=== PATIENT | female | born 1980 | race Caucasian/White ===

== ENCOUNTER → 2016-11-23 | Outpatient (CLI) | payer OTHER ==
[~2016-11-23] MED LIST: ASPI81TA11 PO; FOLI1 PO; PRENTAB62 PO
== END ==
LOC: HPND 07:34
PROVIDERS: ATTEND Obstetrics & Gynecology
DX: O09.811 Supervision of pregnancy resulting from assisted reproductive technology, first trimester (principal); O34.41 Maternal care for other abnormalities of cervix, first trimester
CPT/HCPCS: 36416; 76813

== ENCOUNTER → 2016-12-21 | Outpatient (CLI) | payer OTHER | LOC: HPND 08:05 | PROVIDERS: ATTEND Obstetrics & Gynecology | DX: O09.811 Supervision of pregnancy resulting from assisted reproductive technology, first trimester (principal); O34.41 Maternal care for other abnormalities of cervix, first trimester; Z87.898 Personal history of other specified conditions; Z3A.00 Weeks of gestation of pregnancy not specified | CPT/HCPCS: 76811; 76817 ==

== ENCOUNTER → 2016-12-29 | Outpatient (CLI) | payer OTHER | LOC: HPND 08:06 | PROVIDERS: ATTEND Obstetrics & Gynecology | DX: O35.1XX0 Maternal care for (suspected) chromosomal abnormality in fetus, not applicable or unspecified (principal); O34.32 Maternal care for cervical incompetence, second trimester; O34.42 Maternal care for other abnormalities of cervix, second trimester; O44.02 Complete placenta previa NOS or without hemorrhage, second trimester | CPT/HCPCS: 76815; 76817 ==

== ENCOUNTER → 2017-01-12 | Outpatient (CLI) | payer OTHER | LOC: HPND 08:06 | PROVIDERS: ATTEND Obstetrics & Gynecology | DX: O26.872 Cervical shortening, second trimester (principal); O34.32 Maternal care for cervical incompetence, second trimester; O09.812 Supervision of pregnancy resulting from assisted reproductive technology, second trimester; Z3A.20 20 weeks gestation of pregnancy | CPT/HCPCS: 76816; 76817; 76825; 76827; 93325 ==

== ENCOUNTER → 2017-01-26 | Outpatient (CLI) | payer OTHER | LOC: HPND 14:24 | PROVIDERS: ATTEND Obstetrics & Gynecology | DX: O09.812 Supervision of pregnancy resulting from assisted reproductive technology, second trimester (principal) | CPT/HCPCS: 76815; 76817 ==

== ENCOUNTER → 2017-02-14 | Outpatient (CLI) | payer OTHER | LOC: HPND 07:55 | PROVIDERS: ATTEND Obstetrics & Gynecology | DX: O09.812 Supervision of pregnancy resulting from assisted reproductive technology, second trimester (principal) | CPT/HCPCS: 76816; 76817 ==

== ENCOUNTER 2017-05-07 10:14 | Inpatient (IN) | payer OTHER ==
[2017-05-07] VITALS (74 sets, daily range): BP systolic 102–156; BP diastolic 57–95; PULSE 70–292; RESP 16–18; TEMP 97.8–97.9
[~2017-05-07] VITALS: Ht 180.3 cm; Wt 83.9 kg
[2017-05-07] MEDS ORDERED: LACTATED RINGER'S 1000 ML INJ 1,000 ML IV PRN (11:10)
--- NOTE | 2017-05-07 11:10 | PD ---
HPI Chief Complaint Leaking fluid since 09:00 Date Seen: May 07, 2017 Time Seen: 11:00 Travel History International Travel<30 Days: No Contact w/Intl Traveler<30Days: No Known Affected Area: No History of Present Illness HPI Pt is a 36 yo who presents with c/o leaking fluid vaginally since 09: 00. Fluid is clear. She does not feel any contractions, and there is no bleeding. Pt reports active movements. Pt has had previously uncomplicated care with Dr Reveles. EDC 05-27-2017 was conceived through IVF. Pt has been on Acyclovir for HSV prophylaxis. Weeks Gestation: 37 Para: 0 : 4 History Past Medical History Narrative Medical h/o HSV Medical History: Denies Significant Hx Obstetric History Obstetric History Prior 1st trimester losses x 3, including ectopic Past Surgical History Narrative Surgical IVF egg retrieval LSC salpingectomy for ectopic. Family History Family History: Negative Social History Alcohol Use: No Tobacco Use: No Substance Abuse: No Allergies-Medications (Allergen,Severity, Reaction): Coded Allergies: No Known Allergies (Verified , 12/06/14) Home Meds Reported Medications Folic Acid (Folate 1 Mg Tab) 1 Mg Tab, 2 MG PO DAILY, TAB 12/06/14 Aspirin (Aspirin EC 81 mg) 81 Mg Tab, 81 MG PO DAILY, TAB 12/06/14 Vit W/ Ferrous Fumara ( Vitamins Plus) Plus Tab, 1 PO DAILY 05/11/12 Review of Systems Except as stated in HPI: all other systems reviewed are Neg Physical Exam Narrative GENERAL: Well-nourished, well-developed patient. SKIN: Warm and dry. HEAD: Normocephalic and atraumatic. EYES: No scleral icterus. No injection or drainage. ENT: No nasal drainage noted. Mucous membranes pink. Airway patent. NECK: Supple, trachea midline. No JVD. CARDIOVASCULAR: Regular rate and rhythm without murmurs, gallops, or rubs. RESPIRATORY: Breath sounds equal bilaterally. No accessory muscle use. BREASTS: Bilateral exam showed no masses , no retractions, no nipple discharge. ABDOMEN/GI: Abdomen soft, non-tender, bowel sounds present, no rebound, no guarding Gravid to [37] weeks size Fundal Height: [-] GENITOURINARY: External Genitalia: intact and normal in appearance Cervix: [soft] Dilatation: [FT] Effacement: [70%] Station: [-3] Presentation: [vertex, confirmed by ultrasound] Membranes: [Grossly ruptured] Uterine Contractions: [1-3 minutes] FHT's: Category: [1] Baseline: [120s] Reactive: [-] Variability: [-] Decels: [none] EXTREMITIES: No cyanosis or edema. BACK: Nontender without obvious deformity. No CVA tenderness. NEUROLOGICAL: Awake and alert. Motor and sensory grossly within normal limits. Five out of 5 muscle strength in all muscle groups. Normal speech. Data Data Vital Signs Reviewed: Yes Group B Strep: Negative MDM Medical Record Reviewed: Yes Plan SROM at term. Will admit to labor after discussing with Dr Reveles. D/w Dr Reveles , will admit and start Pitocin per protocol. Diagnosis Diagnosis: Primary Impression: with 37 weeks completed gestation Additional Impression: Ruptured, membranes, premature Reginaldo Villaseñor MD May 07, 2017 11:10
[2017-05-07] MEDS ORDERED: ONDANSETRON HCL 4 MG/2 ML VIAL IV PUSH PRN (11:15)
[2017-05-07] MEDS ORDERED: LIDOCAINE HCL 1% 50 ML VIAL I-DERMAL PRN (11:15)
[2017-05-07] MEDS ORDERED: MINERAL OIL 10 ML VIAL TOPICAL PRN (11:15)
[2017-05-07] MEDS ORDERED: SODIUM CHLORID 0.9% 500 ML INJ 500 ML IV PRN (11:15)
[2017-05-07] MEDS ORDERED: LIDOCAINE HCL 1% 50 ML VIAL INFIL PRN (11:15)
[2017-05-07] MEDS ORDERED: CITRIC ACID-SODIUM CITRATE LIQ 30 ML UDC PO SCH (11:15)
[2017-05-07] MEDS ORDERED: OXYTOCIN 30 UNITS-500ML PREMIX 500 ML IV ONE (11:15)
--- NOTE | 2017-05-07 11:23 | HHI.HP ---
HPI Chief Complaint 37 weeks and 1 day Leaking fluid vaginally since 09:00 Travel History International Travel<30 Days: No Contact w/Intl Traveler<30Days: No Known Affected Area: No History of Present Illness HPI Pt is a 36 yo who presents with c/o leaking fluid vaginally since 09: 00. EDC 05-27-2017 Fluid is clear. She does not feel any contractions, and there is no bleeding. Pt reports active movements. Pt has had previously uncomplicated care with Dr Reveles. was conceived through IVF. Pt has been on Acyclovir for HSV prophylaxis. Weeks Gestation: 37 Para: 0 : 4 History Past Medical History Narrative Medical h/o HVV, on Acyclovir prophylaxis Obstetric History Obstetric History previous ectopic, IVF Past Surgical History Narrative Surgical previous ectopic Family History Family History: Negative Social History Alcohol Use: No Tobacco Use: No Substance Abuse: No Allergies-Medications (Allergen,Severity, Reaction): Coded Allergies: No Known Allergies (Verified , 12/06/14) Home Meds Reported Medications Folic Acid (Folate 1 Mg Tab) 1 Mg Tab, 2 MG PO DAILY, TAB 12/06/14 Aspirin (Aspirin EC 81 mg) 81 Mg Tab, 81 MG PO DAILY, TAB 12/06/14 Vit W/ Ferrous Fumara ( Vitamins Plus) Plus Tab, 1 PO DAILY 05/11/12 Review of Systems Except as stated in HPI: all other systems reviewed are Neg Physical Exam Narrative GENERAL: Well-nourished, well-developed patient. SKIN: Warm and dry. HEAD: Normocephalic and atraumatic. EYES: No scleral icterus. No injection or drainage. ENT: No nasal drainage noted. Mucous membranes pink. Airway patent. NECK: Supple, trachea midline. No JVD. CARDIOVASCULAR: Regular rate and rhythm without murmurs, gallops, or rubs. RESPIRATORY: Breath sounds equal bilaterally. No accessory muscle use. BREASTS: Bilateral exam showed no masses , no retractions, no nipple discharge. ABDOMEN/GI: Abdomen soft, non-tender, bowel sounds present, no rebound, no guarding Gravid to [37] weeks size Fundal Height: GENITOURINARY: External Genitalia: intact and normal in appearance Cervix: [soft Dilatation: [FT] Effacement: [70%] Station: [-3] Presentation: [-] Membranes: [ruptured] Uterine Contractions: [1-3 minutes] FHT's: Category: [1] Baseline: [120s] Reactive: [-] Variability: [-] Decels: [none] EXTREMITIES: No cyanosis or edema. BACK: Nontender without obvious deformity. No CVA tenderness. NEUROLOGICAL: Awake and alert. Motor and sensory grossly within normal limits. Five out of 5 muscle strength in all muscle groups. Normal speech. Caprini VTE Risk Assessment Caprini VTE Risk Assessment: No/Low Risk (score <= 1) Caprini Risk Assessment Model Point Value = 1 Point Value = 2 Point Value = 3 Point Value = 5 Age 41-60 Minor surgery BMI > 25 kg/m2 Swollen legs Varicose veins or History of unexplained or recurrent spontaneous Oral contraceptives or hormone replacement Sepsis (< 1 month) Serious lung disease, including pneumonia (< 1 month) Abnormal pulmonary function Acute myocardial infarction Congestive heart failure (< 1 month) History of inflammatory bowel disease Medical patient at bed rest Age 61-74 Arthroscopic surgery Major open surgery (> 45 min) Laparoscopic surgery (> 45 min) Malignancy Confined to bed (> 72 hours) Immobilizing plaster cast Central venous access Age >= 75 History of VTE Family history of VTE Factor V Leiden Prothrombin [id number] Lupus anticoagulant Anticardiolipin antibodies Elevated serum homocysteine Heparin-induced thrombocytopenia Other congenital or acquired thrombophilia Stroke (< 1 month) Elective arthroplasty Hip, pelvis, or leg fracture Acute spinal cord injury (< 1 month) Prophylaxis Regimen Total Risk Factor Score Risk Level Prophylaxis Regimen 0-1 Low Early ambulation 2 Moderate Order ONE of the following: *Sequential Compression Device (SCD) *Heparin 5000 units SQ BID 3-4 Higher Order ONE of the following medications: *Heparin 5000 units SQ TID *Enoxaparin/Lovenox 40 mg SQ daily (WT < 150 kg, CrCl > 30 mL/min) *Enoxaparin/Lovenox 30 mg SQ daily (WT < 150 kg, CrCl > 10-29 mL/min) *Enoxaparin/Lovenox 30 mg SQ BID (WT < 150 kg, CrCl > 30 mL/min) AND/OR *Sequential Compression Device (SCD) 5 or more Highest Order ONE of the following medications: *Heparin 5000 units SQ TID (Preferred with Epidurals) *Enoxaparin/Lovenox 40 mg SQ daily (WT < 150 kg, CrCl > 30 mL/min) *Enoxaparin/Lovenox 30 mg SQ daily (WT < 150 kg, CrCl > 10-29 mL/min) *Enoxaparin/Lovenox 30 mg SQ BID (WT < 150 kg, CrCl > 30 mL/min) AND *Sequential Compression Device (SCD) Data Data Vital Signs Reviewed: Yes Orders Orders Ob (2e) Additional Admit Info (05/07/17 11:07) Admit To Inpatient (05/07/17 ) Code Status (05/07/17 11:10) Vital Signs (Adult) .Per protocol (05/07/17 11:10) Activity Oob Ad Kaylee (05/07/17 11:10) Heart (05/07/17 11:10) Amnioinfusion (05/07/17 11:10) Urinary Catheter Management .ONCE (05/07/17 11:10) Diet Liquid (05/07/17 Lunch) Lactated Ringer's 1000 Ml Inj (Lr 1000 M (05/07/17 12:00) Lactated Ringer's 1000 Ml Inj (Lr 1000 M (05/07/17 11:10) Sodium Chlorid 0.9% 500 Ml Inj (Ns 500 M (05/07/17 11:15) Sodium Chlor 0.9% 1000 Ml Inj (Ns 1000 M (05/07/17 11:30) Lidocaine 1% Inj (50 Ml) (Xylocaine 1% I (05/07/17 11:15) Citric Acid-Sodium Citrate Liq (Bicitra (05/07/17 11:15) Ondansetron Inj (Zofran Inj) (05/07/17 11:15) Fentanyl Inj (Fentanyl Inj) (05/07/17 11:15) Fentanyl Inj (Fentanyl Inj) (05/07/17 11:15) Complete Blood Count With Diff (05/07/17 11:10) Hold Clot (05/07/17 11:10) Abo/Rh Blood Type (05/07/17 11:10) Urinalysis - C+S If Indicated (05/07/17 11:10) Resp Oxygen Non Rebreathe Mask (05/07/17 ) ^ Epidural / Intrathecal Infus (05/07/17 11:10) Oxytocin 30 Units-500ml Premix (Pitocin (05/07/17 11:15) Lidocaine 1% Inj (50 Ml) (Xylocaine 1% I (05/07/17 11:15) Light Mineral Oil (Muri-Lube Oil) (05/07/17 11:15) Inpatient Certification (05/07/17 ) Group B Strep: Negative Assessment/Plan Assessment and Plan Admitted after term SROM. Will start pitocin augmentation per Dr Reveles. Reginaldo Villaseñor MD May 07, 2017 11:23
[2017-05-07] MEDS ORDERED: OXYTOCIN 30 UNITS-500ML PREMIX 500 ML IV SCH ×2 (11:30→21:45)
[2017-05-07] MEDS ORDERED: SODIUM CHLOR 0.9% 1000 ML INJ 1,000 ML IV PRN (11:30)
[2017-05-07] MEDS: LACTATED RINGER'S 1000 ML INJ 1,000 ML IV SCH ×2 (12:10→18:50)
[2017-05-07 12:32] LABS: AUTOMATED NEUTROPHIL # 6.6 TH/MM3 (1.8-7.7); BASOPHIL % 0.3 % (0.0-2.0); EOSINOPHIL # 0.1 TH/MM3 (0-0.4); HEMATOCRIT 42.4 % (35.0-46.0); HEMO FLAGS DIFF FINAL; LYMPH % 18.2 % (9.0-44.0); LYMPHOCYTE # 1.7 TH/MM3 (1.0-4.8); MEAN CELL VOLUME 94.8 FL (80.0-100.0); MEAN CORPUSCULAR HEMOGLOBIN 32.9 PG (27.0-34.0); MEAN CORPUSCULAR HGB CONC 34.7 % (32.0-36.0); MONO % 7.6 % (0.0-8.0); NEUT % 72.9 % (16.0-70.0); PLATELET COUNT 164 TH/MM3 (150-450); RED BLOOD COUNT 4.47 MIL/MM3 (4.00-5.30); RED CELL DISTRIBUTION WIDTH 12.8 % (11.6-17.2); WHITE BLOOD COUNT 9.1 TH/MM3 (4.0-11.0)
[2017-05-07 12:43] LABS: BACTERIA, URINE RARE /hpf; BLOOD, URINE NEG (NEG); COMMENT (UR) CULT NOT INDICATED; CULTURE IF INDICATED CULT NOT INDICATED; GLUCOSE,URINE NEG (NEG); KETONE, URINE NEG (NEG); MUCUS URINE FEW /lpf (OCC); NITRITE,URINE NEG (NEG); SQUAMOUS EPITHELIAL CELL URINE 5 /hpf (0-5); URINE COLOR YELLOW (YELLW/STRAW)
--- NOTE | 2017-05-07 13:14 | MH ---
cc: NATHALIA NAIR DATE OF ADMISSION: 05/07/2017 ADMITTING DIAGNOSIS at 37 weeks with PROM. HISTORY OF PRESENT ILLNESS The patient is a 36-year-old white female, para 0-0-4-0, with an in vitro with EDC of 05/27/17. Her course has been benign. Her first trimester screen and followup scans have been normal. PAST MEDICAL HISTORY Her past medical history is notable for - 1. A left salpingostomy for ectopic in 2011. 2. She has had laparoscopy and D&C in November of 2014 for endometriosis. 3. Breast augmentation 2002. 4. LEEP procedure age 22 for MARYLOU III and cryo 2006 for MARYLOU I. 5. She had another spontaneous in 2011 and 2015 and an ectopic in 2013 treated with methotrexate. SOCIAL HISTORY , schoolteacher. Alcohol, tobacco and drugs are none. PHYSICAL EXAMINATION GENERAL: A well-nourished well-developed, white female. VITAL SIGNS: Stable. HEENT: Exam is normal. CHEST: Chest is clear. HEART: Regular rate. BREASTS: Breasts are symmetrical. ABDOMEN: Abdomen is gravid. EFW 3000 grams. PELVIC: Cervix is with fingertip, thick, vertex -3, ruptured. time is 09:00 a.m. today by history. GBS is negative. PLAN She is now admitted for Pitocin induction. If she fails to progress or has distress, we will proceed with to Same Day Delivery. MD LYNN Ross/BJF /11:20 AM /12:26 PM DYAN
[2017-05-07] MEDS ORDERED: DIPHTH/TETANUS/ACEL PERTUSSIS (BOOSTER) 0.5 ML VIAL/PFS IM ONE (16:00)
[2017-05-07] MEDS ORDERED: MEASLES, MUMPS, RUBELLA VACCINE 0.5 ML VIAL SQ ONE (16:00)
[2017-05-07] MEDS ORDERED: fentaNYL 2MCG-BUPIV 0.125% INJ 100 ML ONE (17:29)
[2017-05-07] MEDS ORDERED: NO SYSTEM NARCOTICS PRN (20:45)
[2017-05-07] MEDS ORDERED: ePHEDrine/NS 25 MG/5 ML SYR IV PUSH PRN (20:45)
[2017-05-07] MEDS ORDERED: DO NOT ADMINISTER ANTICOAGULANTS PRN (20:45)
[2017-05-07] MEDS ORDERED: fentaNYL 2MCG-BUPIV 0.125% 100 ML EPIDURAL SCH (20:45)
[2017-05-07] MEDS ORDERED: ALUMINUM/MAGNESIUM/SIMETH 30 ML CUP PO PRN (21:45)
[2017-05-07] MEDS ORDERED: ACETAMINOPHEN 325 MG TAB PO PRN (21:45)
[2017-05-07] MEDS ORDERED: ONDANSETRON ODT 4 MG TAB PO PRN (21:45)
[2017-05-07] MEDS ORDERED: SODIUM CHLORIDE 0.9% FLUSH 10 ML FLUSH IV FLUSH PRN (21:45)
[2017-05-07] MEDS ORDERED: BENZOCAINE 20% TOPICAL SPRAY 60 ML CAN TOPICAL PRN (21:45)
[2017-05-07] MEDS ORDERED: WITCH HAZEL 50%/GLYCERIN 12.5% 40 PAD JAR TOPICAL PRN (21:45)
[2017-05-07] MEDS ORDERED: DOCUSATE SODIUM 50 MG/SENNA 8.6 MG TAB PO PRN (21:45)
[2017-05-07] MEDS ORDERED: ZOLPIDEM TARTRATE 5 MG TAB PO PRN (21:45)
[2017-05-07] MEDS ORDERED: oxyCODONE/ACETAMINOPHEN 5 MG/325 MG TAB PO PRN (21:45)
[2017-05-07] MEDS: KETOROLAC TROMETHAMINE 30 MG/ML (IVP) VIAL IV PUSH PRN (22:14)
[2017-05-07] MEDS ORDERED: METHYLERGONOVINE MALEATE 0.2 MG/ML VIAL IM SCH (23:45)
[2017-05-08] VITALS (9 sets, daily range): BP systolic 107–140; BP diastolic 69–90; PULSE 74–89; RESP 16–18; TEMP 97.8
[2017-05-08] MEDS: KETOROLAC TROMETHAMINE 30 MG/ML (IVP) VIAL IV PUSH PRN (02:46)
[2017-05-08] MEDS: IBUPROFEN 600 MG TAB PO PRN ×2 (05:45→11:53)
[2017-05-08 08:50] LABS: AUTOMATED NEUTROPHIL # 9.4 TH/MM3 (1.8-7.7); BASOPHIL % 0.4 % (0.0-2.0); EOSINOPHIL % 0.2 % (0.0-4.0); HEMATOCRIT 34.6 % (35.0-46.0); HEMO FLAGS DIFF FINAL; LYMPH % 11.7 % (9.0-44.0); LYMPHOCYTE # 1.4 TH/MM3 (1.0-4.8); MEAN CELL VOLUME 94.8 FL (80.0-100.0); MEAN CORPUSCULAR HEMOGLOBIN 33.1 PG (27.0-34.0); MEAN CORPUSCULAR HGB CONC 34.9 % (32.0-36.0); MONO % 6.5 % (0.0-8.0); NEUT % 81.2 % (16.0-70.0); PLATELET COUNT 141 TH/MM3 (150-450); RED BLOOD COUNT 3.65 MIL/MM3 (4.00-5.30); RED CELL DISTRIBUTION WIDTH 12.8 % (11.6-17.2); WHITE BLOOD COUNT 11.6 TH/MM3 (4.0-11.0)
[2017-05-08] MEDS ORDERED: SODIUM CHLORIDE 0.9% FLUSH 10 ML FLUSH IV FLUSH SCH (09:00)
[2017-05-08] MEDS ORDERED: INFLUENZA VIRUS VACCINE (QUADRIVALENT) 0.5 ML SYR IM ONE (10:00)
[2017-05-08] MEDS: oxyCODONE/ACETAMINOPHEN 5 MG/325 MG TAB PO PRN ×2 (17:01→22:50)
[2017-05-09] MEDS: IBUPROFEN 600 MG TAB PO PRN (06:03)
[2017-05-09 08:20] VITALS: BP 121/78; PULSE 73; RESP 16; TEMP 98.3
[2017-05-09] MEDS ORDERED: OXYC1TAB63 PO (08:24)
--- NOTE | 2017-05-09 08:24 | HHI.DCPOC ---
Discharge Care Plan Report Symptoms to Your Doctor -Temperature above 100.5 degrees -Redness, of incision or excessive or foul smelling drainage -Unusual pain or calf pain -Increased vaginal bleeding -Painful or difficulty urinating -Feelings of extreme sadness or anxiety after 2 weeks Goals to Promote Your Health * To prevent worsening of your condition and complications * To maintain your health at the optimal level Directions to Meet Your Goals Take your medications as prescribed Follow your dietary instruction Follow activity as directed Ensure plenty of rest for recovery Drink fluids for hydration Keep your appointments as scheduled Take your immunizations and boosters as scheduled If your symptoms worsen call your PCP, if no PCP go to Urgent Care Center or Emergency Room Smoking is Dangerous to Your Health. Avoid second hand smoke Call the 24-hour crisis hotline for domestic abuse at Paolo Reveles MD May 09, 2017 08:24
[2017-05-09] MEDS: oxyCODONE/ACETAMINOPHEN 5 MG/325 MG TAB PO PRN (08:41)
--- NOTE | 2017-05-09 08:44 | MD ---
cc: NATHALIA NAIR ADMISSION DATE: 05/07/2017 05/07/2017 DISCHARGE DATE: 05/09/2017 [place] Visit Search.Discharge Date ADMITTING DIAGNOSIS at 37 weeks with premature rupture of membranes. DISCHARGE DIAGNOSIS at 37 weeks with premature rupture of membranes, delivered. HISTORY OF PRESENT ILLNESS This is a 36-year-old white female, para 0-0-4-0, with an EDC of 05/27/2017 by known in vitro fertilization dates. Her course was benign. 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 She had a salpingoscopy on the right side for an ectopic in 2011, laparoscopy and D&C in 2014 for stable endometriosis, breast augmentation in 2002 and additional ectopic treated with methotrexate and two spontaneous abortions that did not require D&C at 5 weeks. HOSPITAL COURSE She had spontaneous rupture of membranes at about 9:00 a.m. on the morning of admission, was admitted and given Pitocin induction of labor and epidural anesthesia, and progressed to a spontaneous vaginal delivery on the evening of 05/07/2017, a viable vigorous male, Apgars 8 and 9, weight 6 pounds 14 ounces. She had a second-degree tear repaired with chromic suture. she did well and was discharged home in excellent condition on 05/09/2017. DISCHARGE INSTRUCTIONS She was carefully instructed in , perineal and circumcision care. Return to see me in 6 weeks. She is to call for abnormal pain, bleeding, temperature, signs of infection, depression or mastitis. She was given a script for Percocet one p.o. q.4h. p.r.n. pain #30. She is also to take her vitamins and iron pills daily. MD LYNN Ross/CINDI /8:30 AM /8:35 AM
== END 2017-05-09 15:03 | disposition home or self-care (01) | DRG 775 ==
LOC: HOBED 10:14 → H2EA 11:08 → H1EA 05-08 02:18
PROVIDERS: ADMIT Obstetrics & Gynecology; ATTEND Obstetrics & Gynecology
PROC: 10E0XZZ Delivery of Products of Conception, External Approach (ICD-10-PCS; principal; 2017-05-07)
PROC: 0KQM0ZZ Repair Perineum Muscle, Open Approach (ICD-10-PCS; 2017-05-07)
PROC: 3E0P3VZ Introduction of Hormone into Female Reproductive, Percutaneous Approach (ICD-10-PCS; 2017-05-07)
PROC: 00HU33Z Insertion of Infusion Device into Spinal Canal, Percutaneous Approach (ICD-10-PCS; 2017-05-07)
PROC: 3E0R3BZ Introduction of Anesthetic Agent into Spinal Canal, Percutaneous Approach (ICD-10-PCS; 2017-05-07)
DX: O42.02 Full-term premature rupture of membranes, onset of labor within 24 hours of rupture (principal); O70.1 Second degree perineal laceration during delivery; Z37.0 Single live birth; Z3A.37 37 weeks gestation of pregnancy; Z23 Encounter for immunization
CPT/HCPCS: 59025; 81001; 84112; 85025; 86900; 86901; 90686; 90715; J1885; J2210; J2590; J3010; J7120; Q2038

== ENCOUNTER 2017-11-23 17:59 | Observation (INO) | payer BC, OTHER ==
[~2017-11-23] VITALS: Ht 180.3 cm; Wt 70.0 kg
[~2017-11-23 17:59] MED LIST changes: -ASPI81TA11 PO; +DEXAMETHASONE SOD PHOS 4 MG/ML VIAL IV ONE; +GLYCOPYRROLATE 1 MG/5 ML SYRINGE IV PUSH ONE; +KETOROLAC TROMETHAMINE 30 MG/ML (IVP) VIAL IV PUSH ONE; +LIDOCAINE HCL 1% PF 5 ML SYRINGE OTHER ONE; +ONDANSETRON HCL 4 MG/2 ML VIAL IV PUSH ONE; +OXYC1TAB63 PO; +PROPOFOL 200 MG/20 ML AMP IV ONE; +ROCURONIUM INJ 50 MG/5 ML SYRINGE IV PUSH ONE; +SUCCINYLCHOLINE CHLORIDE 100 MG/5 ML SYRINGE IV PUSH ONE; +ePHEDrine/NS 25 MG/5 ML SYRINGE IV ONE
[2017-11-23 18:01] VITALS: BP 137/67; PULSE 76; RESP 18; TEMP 99; O2SAT 99
[2017-11-23] MEDS ORDERED: SODIUM CHLORIDE 0.9% FLUSH 10 ML FLUSH IV FLUSH PRN (18:15)
--- NOTE | 2017-11-23 18:23 | PD ---
HPI Chief Complaint: Medical Clearance Time Seen by Provider: 18:09 Travel History International Travel<30 days: No Contact w/Intl Traveler<30days: No Traveled to known affect area: No History of Present Illness HPI 37-year-old , 2 miscarriages and 1 left sided ectopic, currently ~5 weeks presents to the ED for evaluation of sharp left lower quadrant abdominal pain. Onset at rest last night. Denies nausea, vomiting, diarrhea. Patient endorses vaginal spotting which she characterizes as "medium." She took a Midol and states that pain was improved. Pain currently rated 1/10. LMP late September. She is currently taking progesterone and vitamins. Patient contacted her STAFF DEVELOPMENT COORDINATOR and had outpatient ultrasound today which revealed possible left ectopic . She endorses nausea and vomiting with previous general anesthesia. She states that she ate a snack around 2 pm. She was instructed to come to the ED for surgical evaluation by Dr. Reveles. PENDING SALE TO [facility] Past Medical History Cancer: No Cardiovascular Problems: No Diabetes: No Diminished Hearing: No Endocrine: No Genitourinary: No Hepatitis: No Hiatal Hernia: No Immune Disorder: No Musculoskeletal: No Neurologic: No Psychiatric: Yes (CLAUSTRAPHOBIA, ANXIETY) Reproductive: Yes (MISSED AB'S) Respiratory: No Thyroid Disease: No ?: Unknown Past Surgical History Abdominal Aneurysm Repair: No Abdominal Surgery: No AICD: No Cardiac Surgery: No Ear Surgery: No Endocrine Surgery: No Eye Surgery: No Genitourinary Surgery: No Gynecologic Surgery: Yes (ECTOPIC REP.) Joint Replacement: No Oral Surgery: No Pacemaker: No Thoracic Surgery: No Other Surgery: Yes (BREAST AUGMENTATION) Social History Alcohol Use: No Tobacco Use: No Substance Use: No Allergies-Medications (Allergen,Severity, Reaction): Coded Allergies: No Known Allergies (Verified , 12/06/14) Reported Meds & Prescriptions Reported Meds & Active Scripts Active Oxycodone-Acetaminophen 5-325 mg Tab 1 Tab PO Q4H PRN Reported Folate 1 Mg Tab (Folic Acid) 1 Mg Tab 2 Mg PO DAILY Vitamins Plus ( Vit W/ Ferrous Fumara) Plus Tab 1 PO DAILY Review of Systems Except as stated in HPI: all other systems reviewed are Neg Physical Exam Narrative GENERAL: Well-nourished, well-developed white female no acute distress. SKIN: Focused skin assessment warm/dry. HEAD: Normocephalic. EYES: No scleral icterus. No injection or drainage. NECK: Supple, trachea midline. No JVD or lymphadenopathy. CARDIOVASCULAR: Regular rate and rhythm without murmurs, gallops, or rubs. RESPIRATORY: Breath sounds clear and equal bilaterally. No accessory muscle use. GASTROINTESTINAL: Abdomen soft, non-tender, nondistended. Active bowel sounds. MUSCULOSKELETAL: No cyanosis, or edema. BACK: Nontender without obvious deformity. No CVA tenderness. Data Data Last Documented VS Vital Signs Date Time Temp Pulse Resp B/P (MAP) Pulse Ox O2 Delivery O2 Flow Rate FiO2 11/23/17 18:44 99.0 16 99 Room Air 11/23/17 18:01 76 137/67 (90) Orders Orders Complete Blood Count With Diff (11/23/17 18:08) Comprehensive Metabolic Panel (11/23/17 18:08) Urinalysis - C+S If Indicated (11/23/17 18:08) Iv Access Insert/Monitor (11/23/17 18:08) Ecg Monitoring (11/23/17 18:08) Oximetry (11/23/17 18:08) Sodium Chloride 0.9% Flush (Ns Flush) (11/23/17 18:15) Cefazolin Inj (Ancef Inj) (11/23/17 18:15) Type And Screen (11/23/17 18:15) Acetaminophen 1000 Mg/100 Ml (Ofirmev 10 (11/23/17 18:55) Aprepitant (Emend) (11/23/17 18:59) Admit Order (Ed Use Only) (11/23/17 19:26) Labs Laboratory Tests Test 11/23/17 18:20 11/23/17 18:35 White Blood Count 5.6 TH/MM3 Red Blood Count 4.54 MIL/MM3 Hemoglobin 15.1 GM/DL Hematocrit 43.0 % Mean Corpuscular Volume 94.8 FL Mean Corpuscular Hemoglobin 33.3 PG Mean Corpuscular Hemoglobin Concent 35.1 % Red Cell Distribution Width 12.1 % Platelet Count 246 TH/MM3 Mean Platelet Volume 8.7 FL Neutrophils (%) (Auto) 56.5 % Lymphocytes (%) (Auto) 34.2 % Monocytes (%) (Auto) 6.6 % Eosinophils (%) (Auto) 1.8 % Basophils (%) (Auto) 0.9 % Neutrophils # (Auto) 3.2 TH/MM3 Lymphocytes # (Auto) 1.9 TH/MM3 Monocytes # (Auto) 0.4 TH/MM3 Eosinophils # (Auto) 0.1 TH/MM3 Basophils # (Auto) 0.1 TH/MM3 CBC Comment DIFF FINAL Differential Comment Blood Urea Nitrogen 16 MG/DL Creatinine 0.88 MG/DL Random Glucose 84 MG/DL Total Protein 7.3 GM/DL Albumin 4.4 GM/DL Calcium Level 9.3 MG/DL Alkaline Phosphatase 58 U/L Aspartate Amino Transf (AST/SGOT) 18 U/L Alanine Aminotransferase (ALT/SGPT) 26 U/L Total Bilirubin 1.0 MG/DL Sodium Level 139 MEQ/L Potassium Level 3.6 MEQ/L Chloride Level 105 MEQ/L Carbon Dioxide Level 25.2 MEQ/L Anion Gap 9 MEQ/L Estimat Glomerular Filtration Rate 73 ML/MIN Urine Color YELLOW Urine Turbidity HAZY Urine pH 6.0 Urine Specific [place] 1.018 Urine Protein TRACE mg/dL Urine Glucose (UA) NEG mg/dL Urine Ketones NEG mg/dL Urine Occult Blood MOD Urine Nitrite NEG Urine Bilirubin NEG Urine Urobilinogen LESS THAN 2.0 MG/DL Urine Leukocyte Esterase LARGE Urine RBC 6 /hpf Urine WBC 4 /hpf Urine Squamous Epithelial Cells 8 /hpf Urine Mucus FEW /lpf Microscopic Urinalysis Comment CULT NOT INDICATED MDM Medical Decision Making Medical Screen Exam Complete: Yes Emergency Medical Condition: Yes Differential Diagnosis versus ectopic versus ovarian torsion versus Narrative Course 37-year-old , 2 miscarriages and 1 left sided ectopic, currently ~5 weeks presents to the ED for evaluation of sharp left lower quadrant abdominal pain and vaginal spotting. Patient contacted her PHOTOGRAPHIC ARTIST Dr. Paolo Reveles and was sent for an outpatient ultrasound today which revealed possible left ectopic . Vitals stable. Physical exam is reassuring. I spoke with Dr. Reveles who request CBC, BMP, UA, gram of Ancef and at the patient be taken to the OR. Surgical consents were signed. Patient was admitted to Dr. Reveles, transferred to the OR. Please see his note for disposition. Ana Sellers November 23, 2017 18:23
[2017-11-23 18:40] LABS: AUTOMATED NEUTROPHIL # 3.2 TH/MM3 (1.8-7.7); BASOPHIL # 0.1 TH/MM3 (0-0.2); BASOPHIL % 0.9 % (0.0-2.0); EOSINOPHIL # 0.1 TH/MM3 (0-0.4); EOSINOPHIL % 1.8 % (0.0-4.0); HEMOGLOBIN 15.1 GM/DL (11.6-15.3); LYMPH % 34.2 % (9.0-44.0); LYMPHOCYTE # 1.9 TH/MM3 (1.0-4.8); MEAN CELL VOLUME 94.8 FL (80.0-100.0); MEAN CORPUSCULAR HEMOGLOBIN 33.3 PG (27.0-34.0); MEAN CORPUSCULAR HGB CONC 35.1 % (32.0-36.0); MEAN PLATELET VOLUME 8.7 FL (7.0-11.0); MONO % 6.6 % (0.0-8.0); MONOCYTE # 0.4 TH/MM3 (0-0.9); NEUT % 56.5 % (16.0-70.0); PLATELET COUNT 246 TH/MM3 (150-450); RED BLOOD COUNT 4.54 MIL/MM3 (4.00-5.30); RED CELL DISTRIBUTION WIDTH 12.1 % (11.6-17.2); WHITE BLOOD COUNT 5.6 TH/MM3 (4.0-11.0)
[2017-11-23 18:44] VITALS: RESP 16; TEMP 99; O2SAT 99
[2017-11-23 18:51] LABS: BILIRUBIN, URINE NEG (NEG); BLOOD, URINE MOD (NEG); GLUCOSE,URINE NEG (NEG); KETONE, URINE NEG (NEG); MUCUS URINE FEW /lpf (OCC); NITRITE,URINE NEG (NEG); SQUAMOUS EPITHELIAL CELL URINE 8 /hpf (0-5); URINE COLOR YELLOW (YELLW/STRAW); URINE LEUKOCYTE ESTERASE LARGE (NEG)
[2017-11-23] MEDS ORDERED: ACETAMINOPHEN 1000 MG/100 ML 100 ML IV ONE (18:55)
[2017-11-23 18:59] LABS: ALT (GPT) 26 U/L (10-53)
[2017-11-23] MEDS ORDERED: APREPITANT 40 MG CAP ONE (18:59)
[2017-11-23 19:01] LABS: ALKALINE PHOSPHATASE 58 U/L (45-117); TOTAL PROTEIN 7.3 GM/DL (6.4-8.2)
[2017-11-23 19:07] LABS: ALBUMIN 4.4 GM/DL (3.4-5.0); AST (GOT) 18 U/L (15-37); BICARBONATE 25.2 MEQ/L (21.0-32.0); BLOOD UREA NITROGEN 16 MG/DL (7-18); CALCIUM 9.3 MG/DL (8.5-10.1); CHLORIDE 105 MEQ/L (98-107); CREATININE 0.88 MG/DL (0.50-1.00); GLOMERULAR FILTRATION RATE 73 ML/MIN (>89); GLUCOSE,RANDOM 84 MG/DL (74-106); SODIUM (NA) 139 MEQ/L (136-145)
[2017-11-23] MEDS ORDERED: BUPIVACAINE/EPINEPHRINE 0.5% PF 10 ML VIAL ONE (19:55)
[2017-11-23] MEDS ORDERED: SUGAMMADEX SODIUM 200 MG/2 ML VIAL IV PUSH ONE (20:27)
[2017-11-23] MEDS ORDERED: DO NOT ADM ANY ANTICOAGULANT DRUGS PRN (20:40)
[2017-11-23] MEDS ORDERED: MEPERIDINE HCL 25 MG/ML VIAL ONE (20:48)
[2017-11-23] MEDS ORDERED: METOCLOPRAMIDE HCL 10 MG/2 ML VIAL IV PUSH PRN (21:15)
[2017-11-23] MEDS ORDERED: oxyCODONE/ACETAMINOPHEN 5 MG/325 MG TAB PO PRN (21:15)
[2017-11-23] MEDS ORDERED: PERC5TAB12 PO (21:16)
[2017-11-23] MEDS ORDERED: ZOFR8TAB PO (21:17)
[2017-11-23 21:22] VITALS: BP 110/60; PULSE 75; RESP 16; TEMP 98; O2SAT 99
[2017-11-23] MEDS ORDERED: *ONDANSETRON 4 MG VIAL PERIprocedural Use ONLY ONE (21:24)
--- NOTE | 2017-11-24 09:29 | MH ---
cc: Paolo Reveles MD DATE OF ADMISSION: 11/23/2017 ADMITTING DIAGNOSIS: Ectopic . HISTORY OF PRESENT ILLNESS: The patient is a 37-year-old white female, para 1-0-4-1, with an LMP of 10/17/2017. She had a positive home test and called the office on 11/21/2017. The beta titer returned level 846. Repeat titer today was 1905. She reported onset of bleeding with left-sided cramping on the evening of 11/22/2017, and called today. Ultrasound was obtained at [facility] that showed a left adnexal mass with free fluid suspicious for ectopic . She is now admitted for surgical evaluation. PAST SURGICAL HISTORY: She had a LEEP procedure in 2002 for MARYLOU 3 and cryo 2006 for MARYLOU 1. She had breast augmentation, 2002. She had left salpingostomy for ectopic in 2011. She had laparoscopy and D and C in 11/2014 for endometriosis. She had a spontaneous in 2011 and 2015, did not require surgery. An ectopic in 2013 treated with methotrexate. MEDICATIONS: Vitamins. ALLERGIES: NONE. TRANSFUSION: None. SOCIAL HISTORY: , homemaker, previous teacher. Alcohol: Occasional. Tobacco and drugs are none. FAMILY HISTORY: Noncontributory. PHYSICAL EXAMINATION: GENERAL: A well-nourished, well-developed white female. VITAL SIGNS: Stable. HEENT: Normal. CHEST: Clear. HEART: Regular rate. BREASTS: Symmetric with implants. ABDOMEN: Benign, tender left lower quadrant. PELVIC: Normal external genitalia, BUS. Vagina is normal. Cervix with blood per os. Uterus normal size, shape. Mildly tender on the left. ASSESSMENT: As above. She is now admitted for laparoscopy. If ectopic is found, this will need to be treated. If not, we will simply stop and see if she can carry the intrauterine or whether she would miscarry. The patient agrees to proceed. MD LYNN Ross/SB , 05:25 PM , 05:45 PM
--- NOTE | 2017-11-24 12:26 | MP ---
cc: Paolo Reveles MD DATE OF OPERATION: 11/23/2017 PREOPERATIVE DIAGNOSIS: Ectopic , left side. POSTOPERATIVE DIAGNOSIS: Ectopic , left side. PROCEDURE PERFORMED: Laparoscopy with partial left salpingectomy. ANESTHESIA: General ET. SURGEON: Paolo Reveles MD INDUSTRIAL X RAY OPERATOR: Jesus ESTIMATED BLOOD LOSS: Less than 25 mL. FLUIDS: Are 800 mL of crystalloid. DESCRIPTION OF PROCEDURE: Following induction of adequate general endotracheal anesthesia, the patient was prepped and draped supine on the operating table in dorsal lithotomy position in sterile fashion, with the bladder being drained by Ziegler catheterization. The abdomen is opened through a 0.5 cm umbilical wound. A 5-port was placed, followed by laparoscope attached to a cam. A 5 mm right lower quadrant and a 10 mm left lower quadrant. Pelvic contents revealed an ectopic involving 2/3 of the distal left tube, with about 25 mL of free blood. The ovary was normal. The right tube and ovary normal. [place]-de-sacs were clear. Liver edge was normal. Harmonic scalpel was now used to take the distal 2/3 of the tube, encompassing ectopic , extracted intact in a pouch. Irrigation performed. No bleeding was evident. Low pressure test, no bleeding. The large port was then removed and the fascia sutured with 2-0 Vicryl. The skin injected with 5 mL of Marcaine plus 0.5% and skin closed with a running 3-0 subcuticular Monocryl. Inspection again revealed no bleeding. The port site was intact with no bleeding or entrapment of tissue. The scope was removed, gas allowed to escape. Each of the small ports were injected with 5 mL of Marcaine 0.5% and closed with subcuticular stitches of 3-0 Monocryl. Dressings applied. The ziegler is discontinued. Patient was taken out of stirru. She was awakened and taken to recovery room good condition. MD LYNN Ross/ALEXANDER , 08:34 PM , 08:53 PM [facility]
== END 2017-11-23 21:38 | disposition home or self-care (01) ==
LOC: NEPC 17:59 → NEDA 19:27
PROVIDERS: ADMIT Obstetrics & Gynecology; ATTEND Obstetrics & Gynecology
DX: O00.90 Unspecified ectopic pregnancy without intrauterine pregnancy (principal); Z3A.01 Less than 8 weeks gestation of pregnancy
CPT/HCPCS: 00840; 59151; 80053; 81001; 85025; 86850; 86900; 86901; 88305; 99285; J0131; J0330; J0690; J1100; J1885; J2175; J2405; J3010; J8501